=== PATIENT | female | born 1935 | race Caucasian/White ===

== ENCOUNTER → 2017-05-23 | Outpatient (CLI) | payer OTHER ==
[2017-05-23 09:57] LABS: ALBUMIN 3.3 gm/dl (3.1-4.5); ALKALINE PHOSPHATASE 65 U/L (45-117); BUN 8 mg/dl (7-24); CHLORIDE 104 mmol/L (98-107); CREATININE 0.61 mg/dL (0.55-1.02); POTASSIUM 3.5 mmol/L (3.5-5.1); SGOT/AST 11 IU/L (3-35); SGPT/ALT 12 U/L (12-78); SODIUM 140 mmol/L (136-145); TOTAL PROTEIN 6.5 gm/dL (6.4-8.2)
[2017-05-24 11:07] LABS: CREATININE,URINE 45.7 mg/dL (Not Estab.)
== END | disposition home or self-care (01) ==
LOC: LAB 08:44
PROVIDERS: Internal Medicine
DX: C94.6 Myelodysplastic disease, not elsewhere classified (principal); C52 Malignant neoplasm of vagina; I10 Essential (primary) hypertension; E11.9 Type 2 diabetes mellitus without complications

== ENCOUNTER 2017-06-30 22:25 | Emergency (ER) | payer OTHER ==
[~2017-06-30] VITALS: Wt 59.0 kg
[2017-07-01 00:29] LABS: HEMATOCRIT 30.6 % (37.0-47.0); HEMOGLOBIN 10.2 g/dl (12.0-16.0); MEAN CELL VOLUME 101.3 fl (81.0-99.0); MEAN CORPUSCULAR HGB 33.8 pg (27.0-31.0); MEAN CORPUSCULAR HGB CONC 33.3 g/dl (33.0-37.0); MEAN PLATELET VOLUME 8.4 fl (9.6-12.3); PLATELET COUNT AUTOMATED 201 10*3/uL (130-400); RED BLOOD COUNT 3.02 10*6/uL (4.10-5.10); RED CELL DISTRI WIDTH 15.4 % (0-14.5)
[2017-07-01 00:33] LABS: WHITE BLOOD COUNT 0.9 10*3/uL (4.8-10.8)
[2017-07-01 00:39] LABS: ACT PARTIAL THROMBO TIME 39.9 SECONDS (20.8-31.5); INTERNATIONAL NORM RATIO 1.1 (2.0-3.5)
[2017-07-01 00:43] LABS: ALBUMIN 3.2 gm/dl (3.1-4.5); ALKALINE PHOSPHATASE 59 U/L (45-117); BUN 15 mg/dl (7-24); CHLORIDE 105 mmol/L (98-107); CREATININE 0.86 mg/dL (0.55-1.02); LIPASE 42 U/L (73-393); POTASSIUM 3.1 mmol/L (3.5-5.1); SGOT/AST 15 IU/L (3-35); SGPT/ALT 18 U/L (12-78); SODIUM 142 mmol/L (136-145); TOTAL PROTEIN 5.9 gm/dL (6.4-8.2)
[2017-07-01 00:51] LABS: BASOPHILS 7 % (0-1); PLATELET SUFFICIENCY NORMAL (NORMAL); TOTAL CELLS COUNTED 100 #CELLS
[2017-07-01 00:52] LABS: OVALOCYTES FEW
[2017-07-01 00:53] LABS: SCHISTOCYTES FEW
[2017-07-01] MEDS ORDERED: FLOMAX0.4 MG PO (02:24)
[2017-07-01] MEDS ORDERED: NORCO 5-325 TA1 EACH PO (02:24)
[2017-07-01] MEDS ORDERED: ZOFRAN ODT4 MG SL (02:24)
== END 2017-07-01 02:28 | disposition home or self-care (01) ==
LOC: ED 22:25
PROVIDERS: Nurse Practitioner Family
DX: N20.1 Calculus of ureter (principal); R10.32 Left lower quadrant pain